=== PATIENT | female | born 1955 | race Two or more races ===

== ENCOUNTER 2018-04-01 18:41 | Inpatient (IN) | payer MEDICAID, OTHER ==
[~2018-04-01] VITALS: Ht 167.6 cm; Wt 102.8 kg
[2018-04-01] MEDS ORDERED: ACETAMINOPHEN 500 MG TAB PO ONE (19:00)
[2018-04-01 19:34] LABS: Basophils # (auto) 0 uL; Basophils % (auto) 0.4 % (0.0-2.0); Eosinophils # (auto) 0 uL; Eosinophils % (auto) 1.1 % (0.0-7.0); Hematocrit 48.4 % (36.0-46.0); Hemoglobin 16.5 g/dL (12.2-16.2); Lymphocytes # (auto) 1.1 uL; Lymphocytes % (auto) 27.6 % (10.0-50.0); Mean Corpuscular Hemoglobin 33.5 pg (28.0-32.0); Mean Corpuscular Hgb Conc. 34.1 g/dL (32.0-36.0); Mean Corpuscular Volume 98.1 fL (80.0-100.0); Monocytes # (auto) 0.3 uL; Monocytes % (auto) 6.2 % (0.0-12.0); Neutrophils # (auto) 2.7 uL; Neutrophils % (auto) 64.7 % (37.0-80.0); Nucleated Red Blood Cells % 0.4 %; Platelet Count (auto) 167 10^3/uL (140-450); Red Blood Cells 4.94 10^6/uL (4.0-5.20); Red Cell Distribution Width 12.1 % (11.8-14.3); White Blood Cell 4.1 10^3/uL (4.4-10.8)
[2018-04-01 19:53] LABS: Albumin 3.4 g/dL (3.4-5.0); Anion Gap 8 (5-15); BUN/Creatinine Ratio 8.1; Blood Urea Nitrogen 6 mg/dL (7-18); Carbon Dioxide 25 mmol/L (21-32); Chloride 103 mmol/L (98-107); GFR African American 102 mL/min; GFR Non-African American 84 mL/min; Glucose 119 mg/dL (74-106); Potassium 3.9 mmol/L (3.5-5.1); Sodium 136 mmol/L (136-145)
[2018-04-01 19:55] LABS: Alanine Aminotransferase 28 U/L (13-56); Alkaline Phosphatase 106 U/L (45-117); Aspartate Aminotransferase 31 U/L (15-37); Bilirubin, Total 0.3 mg/dL (0.2-1.0); Total Protein 8.2 g/dL (6.4-8.2)
[2018-04-01] MEDS ORDERED: IPRATROPIUM BROM 0.5 MG/2.5ML INH SOL NEB ONE (21:00)
[2018-04-01] MEDS ORDERED: methylPREDNISolone SOD SUCC 125 MG/2 ML VL IV ONE (21:00)
[2018-04-01] MEDS ORDERED: ALBUTEROL SULF 2.5 MG/0.5ML(0.5%) NEB SOLN NEB ONE (21:00)
[2018-04-01] MEDS ORDERED: LEVOFLOXACIN 750MG 150 ML IV ONE (21:00)
[2018-04-01 21:05] LABS: Urine Bacteria NONE SEEN /hpf (None Seen); Urine Blood Negative /uL (Negative); Urine Mucus FEW (None Seen); Urine Specific Gravity 1.013 (1.001-1.035); Urine WBC 1 /hpf (0 - 5)
[2018-04-01] MEDS ORDERED: ONDANSETRON HCL 4 MG/2 ML VIAL IV PRN (21:45)
[2018-04-01] MEDS ORDERED: ALBUTEROL SULF 2.5 MG/0.5ML(0.5%) NEB SOLN NEB PRN (21:45)
[2018-04-01] MEDS ORDERED: DOCUSATE SOD 100 MG CAP PO PRN (21:45)
[2018-04-01] MEDS ORDERED: LEVOFLOXACIN 750MG 150 ML IV SCH (21:53)
[2018-04-01 22:06] VITALS: BP 165/87
[2018-04-01] MEDS: FAMOTIDINE 20 MG TAB PO SCH (22:13)
[2018-04-01 23:00] VITALS: BP 147/73
[2018-04-02] MEDS: HYDROcodone-ACET 5/325MG TAB PO PRN ×2 (02:08→10:17)
[2018-04-02] MEDS: cloNIDine HCL 0.1 MG TAB PO PRN (04:33)
[2018-04-02] MEDS: TEMAZEPAM 15 MG CAP PO PRN (04:33)
[2018-04-02 04:51] VITALS: BP 167/92
[2018-04-02 06:25] LABS: BUN/Creatinine Ratio 13.6; Calcium 8.5 mg/dL (8.5-10.1); Potassium 4.2 mmol/L (3.5-5.1)
[2018-04-02 06:33] LABS: Basophils # (auto) 0 uL; Basophils % (auto) 0.2 % (0.0-2.0); Eosinophils # (auto) 0 uL; Hematocrit 46.9 % (36.0-46.0); Hemoglobin 16.4 g/dL (12.2-16.2); Lymphocytes # (auto) 0.6 uL; Lymphocytes % (auto) 20.5 % (10.0-50.0); Mean Corpuscular Hemoglobin 33.9 pg (28.0-32.0); Mean Corpuscular Hgb Conc. 34.9 g/dL (32.0-36.0); Mean Corpuscular Volume 97.1 fL (80.0-100.0); Monocytes # (auto) 0.1 uL; Monocytes % (auto) 2.8 % (0.0-12.0); Neutrophils # (auto) 2.1 uL; Neutrophils % (auto) 76.5 % (37.0-80.0); Nucleated Red Blood Cells % 0.5 %; Platelet Count (auto) 168 10^3/uL (140-450); Red Blood Cells 4.83 10^6/uL (4.0-5.20); Red Cell Distribution Width 12.2 % (11.8-14.3); White Blood Cell 2.8 10^3/uL (4.4-10.8)
[2018-04-02 09:36] VITALS: BP 129/73
[2018-04-02] MEDS: FAMOTIDINE 20 MG TAB PO SCH ×2 (10:17→19:49)
[2018-04-02] MEDS: LISINOPRIL 10 MG TAB PO SCH (10:18)
[2018-04-02] MEDS ORDERED: OSELTAMIVIR 75 MG CAP PO ONE (13:00)
[2018-04-02 13:36] VITALS: BP 160/80
--- NOTE | 2018-04-02 14:35 | NUR ---
Respiratory note: ASSESSED PATIENT FOR PRN BREATHING TX, PATIENT IS AWAKE AND ALERT. PATIENT FELT THAT SHE WOULD BENEFIT FROM A BREATHING TX. PATIENT BREATH SOUNDS WERE CLEAR AND DIMINISHED, RR 18, SPO2 87-88% ON ROOM AIR, HR 60. WILL NOTIFY RUPALI GOODWIN AND WILL CONTINUE TO MONITOR PATIENT.
--- NOTE | 2018-04-02 14:45 | NUR ---
Respiratory note: PLACED PATIENT ON 2 L NASAL CANNULA DUE TO DESATURATION. PATIENT IS ABLE TO MAINTAIN SPO2 94%. RUPALI GOODWIN WAS NOTIFIED.
[2018-04-02] MEDS: LEVOFLOXACIN 750MG 150 ML IV SCH (16:09)
[2018-04-02] MEDS: SODIUM CHLORIDE 0.9% 1,000 ML IV SCH (16:10)
[2018-04-02 17:16] VITALS: BP 148/79
[2018-04-02] MEDS: ALBUTEROL SULF 2.5 MG/0.5ML(0.5%) NEB SOLN NEB SCH ×2 (19:34→20:03)
[2018-04-02] MEDS: IPRATROPIUM BROM 0.5 MG/2.5ML INH SOL NEB SCH ×2 (19:34→20:03)
[2018-04-02] MEDS: guaiFENesin-DM 100/10mg/5ml SYR PO PRN (19:49)
--- NOTE | 2018-04-02 21:00 | NUR ---
IV insertion IV access obtained, via clean sterile technique by inserting gauge #22 catheter at left hand after 2nd attempt . IV secured properly. No trauma to site. Patient tolerated well. IV removal IV DC'd to left AC with clean sterile technique, catheter fully intact. Pressure dressing applied to site. Patient tolerated well.
[2018-04-02] MEDS ORDERED: OSELTAMIVIR 75 MG CAP PO SCH (22:00)
[2018-04-02 22:22] VITALS: BP_SYST 117; BP_DIAS 69; BP_DIAS 89
[2018-04-03] MEDS: guaiFENesin-DM 100/10mg/5ml SYR PO PRN ×4 (04:54→20:40)
[2018-04-03] MEDS: SODIUM CHLORIDE 0.9% 1,000 ML IV SCH (04:56)
[2018-04-03] MEDS: ACETAMINOPHEN 325 MG TAB PO PRN (04:56)
[2018-04-03 05:32] LABS: Basophils # (auto) 0 uL; Basophils % (auto) 0.3 % (0.0-2.0); Eosinophils # (auto) 0 uL; Eosinophils % (auto) 0.4 % (0.0-7.0); Hematocrit 43.6 % (36.0-46.0); Hemoglobin 15.2 g/dL (12.2-16.2); Lymphocytes # (auto) 1.8 uL; Lymphocytes % (auto) 40.7 % (10.0-50.0); Mean Corpuscular Hemoglobin 33.8 pg (28.0-32.0); Mean Corpuscular Hgb Conc. 34.8 g/dL (32.0-36.0); Monocytes # (auto) 0.3 uL; Monocytes % (auto) 7.8 % (0.0-12.0); Neutrophils # (auto) 2.3 uL; Neutrophils % (auto) 50.8 % (37.0-80.0); Nucleated Red Blood Cells % 0.2 %; Platelet Count (auto) 169 10^3/uL (140-450); Red Blood Cells 4.49 10^6/uL (4.0-5.20); White Blood Cell 4.5 10^3/uL (4.4-10.8)
[2018-04-03 05:52] LABS: Potassium 4.2 mmol/L (3.5-5.1)
[2018-04-03 05:55] LABS: BUN/Creatinine Ratio 30.4; Calcium 8.2 mg/dL (8.5-10.1)
[2018-04-03] MEDS: ALBUTEROL SULF 2.5 MG/0.5ML(0.5%) NEB SOLN NEB SCH ×3 (06:33→18:29)
[2018-04-03] MEDS: IPRATROPIUM BROM 0.5 MG/2.5ML INH SOL NEB SCH ×3 (06:33→18:29)
[2018-04-03] MEDS: LEVOFLOXACIN 750MG 150 ML IV SCH (09:42)
[2018-04-03] MEDS: HYDROcodone-ACET 5/325MG TAB PO PRN (09:43)
[2018-04-03] MEDS: FAMOTIDINE 20 MG TAB PO SCH ×2 (09:43→20:41)
[2018-04-03] MEDS: LISINOPRIL 10 MG TAB PO SCH (09:43)
[2018-04-03 09:56] VITALS: BP_SYST 124; BP_SYST 147; BP_DIAS 70; BP_DIAS 74
[2018-04-03 12:00] VITALS: BP_SYST 123; BP_SYST 143; BP_DIAS 77; BP_DIAS 91
[2018-04-03 16:55] VITALS: BP 128/71
--- NOTE | 2018-04-03 19:38 | NUR ---
Opening Shift Note Assumed care of patient, awake and alert. No S/S of distress/SOB or pain. Instructed on POC and to call for assist PRN, will continue to monitor for changes Q1hr and PRN. Patient feeling better today. Call roberts with in reach, bed in low position.
--- NOTE | 2018-04-03 20:47 | NUR ---
Patient c/o yeast infection, patient said " I get it every time I take antibiotics". Paged Hospitalist.
[2018-04-03 22:00] VITALS: BP 133/72
[2018-04-04] MEDS: guaiFENesin-DM 100/10mg/5ml SYR PO PRN ×3 (00:51→21:01)
[2018-04-04] MEDS: TEMAZEPAM 15 MG CAP PO PRN ×2 (00:53→21:01)
--- NOTE | 2018-04-04 01:48 | NUR ---
Patient requesting breathing treatment, RT paged.
[2018-04-04] MEDS: ALBUTEROL SULF 2.5 MG/0.5ML(0.5%) NEB SOLN NEB SCH ×6 (02:11→23:59)
[2018-04-04] MEDS: IPRATROPIUM BROM 0.5 MG/2.5ML INH SOL NEB SCH ×6 (02:11→23:59)
[2018-04-04 05:39] VITALS: BP 135/77
--- NOTE | 2018-04-04 07:40 | NUR ---
OPENING NOTE ASSUMED CARE OF PATIENT. PT IS LAYING ON BED, AWAKE, HOB LOW-FOWLERS. A&O x4. ON 2 LPM/NC, O2 SATURATION 96%. NO SIGNS OF SOB/DISTRESS NOTED. SAFETY PRECAUTIONS IN PLACE INCLUDING, BED SET TO LOWEST POSITION/LOCKED. BEDSIDE RAILS UP X2. CALL LIGHT WITHIN REACH. INSTRUCTED PT TO CALL FOR ASSISTANCE. DISCUSSED POC WITH PT. PT VERBALIZED UNDERSTANDING. WILL CONTINUE TO MONITOR Q 1HR AND PRN.
[2018-04-04 09:00] VITALS: BP 129/74
[2018-04-04] MEDS: FAMOTIDINE 20 MG TAB PO SCH ×2 (10:38→21:01)
[2018-04-04] MEDS: ACETAMINOPHEN 325 MG TAB PO PRN ×2 (10:39→22:10)
[2018-04-04] MEDS: LEVOFLOXACIN 750MG 150 ML IV SCH (10:39)
[2018-04-04] MEDS: LISINOPRIL 10 MG TAB PO SCH (10:40)
[2018-04-04] MEDS ORDERED: methylPREDNISolone SOD SUCC 125 MG/2 ML VL IV ONE (12:30)
[2018-04-04] MEDS: cloNIDine HCL 0.1 MG TAB PO PRN (12:43)
[2018-04-04 13:29] VITALS: BP 161/87
[2018-04-04 17:30] VITALS: BP 162/85
--- NOTE | 2018-04-04 19:47 | NUR ---
ENDORSED CARE TO RUPALI CARTAGENA.
[2018-04-04 21:30] VITALS: BP 144/79
[2018-04-05 02:48] VITALS: BP 162/85
[2018-04-05 05:00] VITALS: BP 140/85
[2018-04-05] MEDS: ACETAMINOPHEN 325 MG TAB PO PRN (06:19)
--- NOTE | 2018-04-05 07:15 | NUR ---
OPENING NOTE ASSUMED CARE OF PATIENT. PT IS SITTING ON BED, AWAKE, HOB HIGH-FOWLERS. A&O x4. ON 2 LPM/NC, O2 SATURATION 93%. NO SIGNS OF SOB/DISTRESS NOTED. SAFETY PRECAUTIONS IN PLACE INCLUDING, BED SET TO LOWEST POSITION/LOCKED. BEDSIDE RAILS UP X2. CALL LIGHT WITHIN REACH. INSTRUCTED PT TO CALL FOR ASSISTANCE. DISCUSSED POC WITH PT. PT VERBALIZED UNDERSTANDING. WILL CONTINUE TO MONITOR Q 1HR AND PRN.
[2018-04-05] MEDS: IPRATROPIUM BROM 0.5 MG/2.5ML INH SOL NEB SCH ×2 (07:22→11:57)
[2018-04-05] MEDS: ALBUTEROL SULF 2.5 MG/0.5ML(0.5%) NEB SOLN NEB SCH ×2 (07:22→11:57)
[2018-04-05 09:00] VITALS: BP 154/98
[2018-04-05] MEDS ORDERED: predniSONE 20 MG TAB PO SCH (10:00)
[2018-04-05] MEDS: LEVOFLOXACIN 750MG 150 ML IV SCH (11:26)
[2018-04-05] MEDS: LISINOPRIL 10 MG TAB PO SCH (11:27)
[2018-04-05] MEDS: FAMOTIDINE 20 MG TAB PO SCH (11:27)
[2018-04-05 12:56] VITALS: BP 142/80
[2018-04-05 14:04] VITALS: BP 154/98
--- NOTE | 2018-04-05 15:40 | NUR ---
Discharge instructions given as ordered. Encourage to follow up with Dr. Toro, [address] [place]. . All questions and concerns addressed. Patient verbalized understanding. No home medications held in Pharmacy and no vaccines given. IV removed with catheter intact, pressure dressing applied.
--- NOTE | 2018-04-05 15:46 | NUR ---
Patient ambulated to vehicle via wheelchair with all personal belongings, accompanied by staff member. No distress noted at time of departure.
== END 2018-04-05 15:46 | disposition home or self-care (01) | DRG 720 ==
LOC: ER 18:41 → WEST WING 22:15
PROVIDERS: ADMIT Nurse Practitioner; ATTEND Internal Medicine
DX: A41.9 Sepsis, unspecified organism (principal); J96.00 Acute respiratory failure, unspecified whether with hypoxia or hypercapnia; J18.9 Pneumonia, unspecified organism; E66.9 Obesity, unspecified; I10 Essential (primary) hypertension; E66.01 Morbid (severe) obesity due to excess calories; Z68.36 Body mass index [BMI] 36.0-36.9, adult
CPT/HCPCS: 36415; 71045; 71046; 80048; 80053; 81001; 83605; 84484; 85025; 87040; 87086; 87804; 93005; 94640; 96365; 96375; A6257; G0378; J1956; J2405

== ENCOUNTER 2018-04-19 19:21 | Emergency (ER) | payer MEDICAID ==
[~2018-04-19] VITALS: Ht 167.6 cm; Wt 99.8 kg
[2018-04-19] MEDS ORDERED: methylPREDNISolone SOD SUCC 125 MG/2 ML VL IV ONE (21:00)
[2018-04-19] MEDS ORDERED: ALBUTEROL SULF 2.5 MG/0.5ML(0.5%) NEB SOLN NEB ONE (21:00)
[2018-04-19] MEDS ORDERED: KETOROLAC TROMETH 30 MG/ML 1ML VIAL IV ONE (21:00)
[2018-04-19] MEDS ORDERED: IPRATROPIUM BROM 0.5 MG/2.5ML INH SOL NEB ONE (21:00)
[2018-04-19 21:17] VITALS: BP 153/90
[2018-04-19 21:41] LABS: Basophils # (auto) 0 uL; Basophils % (auto) 0.4 % (0.0-2.0); Eosinophils # (auto) 0.2 uL; Eosinophils % (auto) 2.3 % (0.0-7.0); Hematocrit 45.9 % (36.0-46.0); Hemoglobin 15.9 g/dL (12.2-16.2); Lymphocytes % (auto) 26.6 % (10.0-50.0); Mean Corpuscular Hemoglobin 33.7 pg (28.0-32.0); Mean Corpuscular Hgb Conc. 34.6 g/dL (32.0-36.0); Mean Corpuscular Volume 97.4 fL (80.0-100.0); Monocytes # (auto) 0.5 uL; Neutrophils # (auto) 4.8 uL; Neutrophils % (auto) 63.7 % (37.0-80.0); Nucleated Red Blood Cells % 0.1 %; Platelet Count (auto) 226 10^3/uL (140-450); Red Blood Cells 4.72 10^6/uL (4.0-5.20); White Blood Cell 7.6 10^3/uL (4.4-10.8)
[2018-04-19 22:07] LABS: Alanine Aminotransferase 30 U/L (13-56); Albumin 3.6 g/dL (3.4-5.0); Anion Gap 6 (5-15); Aspartate Aminotransferase 12 U/L (15-37); BUN/Creatinine Ratio 14.1; Blood Urea Nitrogen 9 mg/dL (7-18); Carbon Dioxide 25 mmol/L (21-32); Chloride 106 mmol/L (98-107); GFR African American 120 mL/min; GFR Non-African American 99 mL/min; Glucose 279 mg/dL (74-106); Potassium 3.8 mmol/L (3.5-5.1); Sodium 137 mmol/L (136-145)
[2018-04-19 22:13] LABS: INR 0.9 (0.9-1.15); Prothrombin Time 9.7 sec (9.27-12.13)
[2018-04-19 22:14] LABS: Alkaline Phosphatase 110 U/L (45-117); Bilirubin, Total 0.4 mg/dL (0.2-1.0); Total Protein 7.9 g/dL (6.4-8.2)
[2018-04-19 22:19] LABS: CRP High Sensitivity 3.73 mg/dL (< 0.3)
[2018-04-19] MEDS ORDERED: SODIUM CHLORIDE 0.9% 1,000 ML IV ONE (23:15)
[2018-04-20] MEDS ORDERED: ALBUTEROL SULF 2.5 MG/0.5ML(0.5%) NEB SOLN NEB ONE
[2018-04-20] MEDS ORDERED: IPRATROPIUM BROM 0.5 MG/2.5ML INH SOL NEB ONE
== END 2018-04-20 01:55 | disposition home or self-care (01) ==
LOC: ER 19:21
DX: J98.11 Atelectasis (principal); E11.9 Type 2 diabetes mellitus without complications; I10 Essential (primary) hypertension
CPT/HCPCS: 36415; 71046; 80053; 82550; 82962; 83036; 83605; 83880; 84484; 85025; 85379; 85610; 85652; 86141; 94640; 96374; 96375; 99284; J1885; J2930; J7030; J7611; J7644

== ENCOUNTER 2019-11-01 15:23 | Emergency (ER) | payer MEDICAID, OTHER ==
[~2019-11-01] VITALS: Ht 172.7 cm; Wt 99.8 kg
[2019-11-01] MEDS ORDERED: ACETAMINOPHEN 325 MG TAB PO ONE (16:45)
[2019-11-01 17:20] LABS: Basophils # (auto) 0 10 ^3/uL (0-0.2); Basophils % (auto) 0.2 % (0.0-2.0); Eosinophils # (auto) 0 10 ^3/uL (0-0.8); Eosinophils % (auto) 0.2 % (0.0-7.0); Hematocrit 43.3 % (36.0-46.0); Hemoglobin 15.2 g/dL (12.2-16.2); Lymphocytes # (auto) 0.4 10 ^3/uL (0.4-5.4); Lymphocytes % (auto) 5.7 % (10.0-50.0); Mean Corpuscular Hemoglobin 33.8 pg (28.0-32.0); Mean Corpuscular Volume 96.5 fL (80.0-100.0); Monocytes # (auto) 0.1 10 ^3/uL (0-1.3); Monocytes % (auto) 1.2 % (0.0-12.0); Neutrophils # (auto) 6.8 10 ^3/uL (1.6-8.6); Neutrophils % (auto) 92.7 % (37.0-80.0); Platelet Count (auto) 149 10^3/uL (140-450); Red Blood Cells 4.48 10^6/uL (4.0-5.20); Red Cell Distribution Width 12.6 % (11.8-14.3); White Blood Cell 7.3 10^3/uL (4.4-10.8)
[2019-11-01 17:34] LABS: Alanine Aminotransferase 45 U/L (13-56); Albumin 3.1 g/dL (3.4-5.0); Anion Gap 9 (5-15); Aspartate Aminotransferase 30 U/L (15-37); BUN/Creatinine Ratio 15.7; Blood Urea Nitrogen 11 mg/dL (7-18); Carbon Dioxide 20 mmol/L (21-32); Chloride 111 mmol/L (98-107); GFR African American 108 mL/min; GFR Non-African American 89 mL/min; Glucose 99 mg/dL (74-106); INR 1.18 (0.9-1.15); Magnesium 1.6 mg/dL (1.6-2.6); Partial Thromboplastin Time 23.9 sec (23.0-31.2); Potassium 3.1 mmol/L (3.5-5.1); Sodium 140 mmol/L (136-145)
[2019-11-01 17:39] LABS: Alkaline Phosphatase 101 U/L (45-117); Bilirubin, Total 1.9 mg/dL (0.2-1.0); Lactic Acid w/Reflex 2.3 mmol/L (0.4-2.0); Total Protein 6.6 g/dL (6.4-8.2)
[2019-11-01] MEDS ORDERED: SODIUM CHLORIDE 0.9% 1,000 ML IVB ONE (18:08)
[2019-11-01] MEDS ORDERED: DOXYCYCLINE 100MG/250ML 250 ML IV ONE (20:15)
[2019-11-01] MEDS ORDERED: ASCORBIC ACID 500 MG TAB PO ONE (20:15)
[2019-11-01] MEDS ORDERED: ZINC SULFATE 220mg CAP or TAB PO ONE (20:15)
[2019-11-01 20:25] LABS: Magnesium 1.7 mg/dL (1.6-2.6)
[2019-11-01] MEDS ORDERED: POTASSIUM CHL 20 Meq TABLET PO ONE (20:30)
[2019-11-01] MEDS ORDERED: HYDROcodone-ACET 5/325MG TAB PO ONE (20:45)
[2019-11-01 21:31] LABS: Urine Bacteria NONE SEEN /hpf (None Seen); Urine Blood Negative /uL (Negative); Urine Specific Gravity 1.016 (1.001-1.035); Urine WBC 1 /hpf (0 - 5)
[2019-11-02] MEDS ORDERED: POTASSIUM EFFERVESENT TAB 25 MEQ PO ONE (00:30)
[2019-11-02 00:57] VITALS: BP 120/62
== END 2019-11-02 00:38 | disposition home or self-care (01) ==
LOC: EDBD 15:23 → ER 15:23
DX: J18.9 Pneumonia, unspecified organism (principal); E87.6 Hypokalemia; E11.9 Type 2 diabetes mellitus without complications; I10 Essential (primary) hypertension; Z20.828 Contact with and (suspected) exposure to other viral communicable diseases
CPT/HCPCS: 36415; 71045; 80053; 81001; 83605; 83735; 84484; 85025; 85610; 85730; 87040; 87077; 87186; 87426; 93005; 96361; 96365; 99285; C9803; J3490; U0003

== ENCOUNTER 2023-10-10 03:41 | Inpatient (IN) | payer OTHER ==
[2023-10-10] VITALS (9 sets, daily range): BP systolic 108–116; BP diastolic 60–62; PULSE 78–109; RESP 16–22; TEMP 97.5–98.2; O2SAT 95–100
[~2023-10-10] VITALS: Ht 167.6 cm; Wt 92.0 kg
[2023-10-10] MEDS: cefTRIAXone 1GM/50ML D5W 50 ML IV ONE (04:21)
[2023-10-10] MEDS: HYDROcodone-ACET 5/325MG TAB PO ONE (04:21)
[2023-10-10] MEDS: FAMOTIDINE (10MG/ML) 2ML VL IV ONE (04:22)
[2023-10-10] MEDS: ONDANSETRON HCL 4 MG/2 ML VIAL IV ONE (04:22)
[2023-10-10] MEDS: SODIUM CHLORIDE 0.9% 1,000 ML IV ONE ×3 (04:23→08:15)
[2023-10-10 04:35] LABS: Basophils # (auto) 0 10 ^3/uL (0-0.2); Basophils % (auto) 0.2 % (0.0-2.0); Eosinophils # (auto) 0 10 ^3/uL (0-0.8); Eosinophils % (auto) 0.9 % (0.0-7.0); Hematocrit 43.1 % (36.0-46.0); Hemoglobin 14.8 g/dL (12.2-16.2); Lymphocytes # (auto) 0.3 10 ^3/uL (0.4-5.4); Mean Corpuscular Hgb Conc. 34.4 g/dL (32.0-36.0); Mean Corpuscular Volume 98.6 fL (80.0-100.0); Monocytes # (auto) 0 10 ^3/uL (0-1.3); Monocytes % (auto) 1.3 % (0.0-12.0); Neutrophils # (auto) 1.8 10 ^3/uL (1.6-8.6); Neutrophils % (auto) 85.6 % (37.0-80.0); Nucleated Red Blood Cells % 0.2 %; Platelet Count (auto) 165 10^3/uL (140-450); Red Blood Cells 4.37 10^6/uL (4.0-5.20); Red Cell Distribution Width 13.2 % (11.8-14.3); White Blood Cell 2.1 10^3/uL (4.4-10.8)
[2023-10-10 04:49] LABS: Alanine Aminotransferase 52 U/L (7-40); Albumin 3.9 g/dL (3.2-4.8); Alkaline Phosphatase 262 U/L (46-116); Anion Gap 12 (5-15); Aspartate Aminotransferase 37 U/L (13-40); Bilirubin, Total 0.9 mg/dL (0.2-1.0); Blood Urea Nitrogen 20 mg/dL (9-23); Calcium 9.8 mg/dL (8.7-10.4); Carbon Dioxide 19 mmol/L (20-30); Chloride 107 mmol/L (98-107); Glucose 253 mg/dL (74-106); Lipase 29 U/L (12-53); Potassium 3.3 mmol/L (3.5-5.1); Sodium 138 mmol/L (136-145); Total Protein 6.9 g/dL (5.7-8.2)
[2023-10-10 04:51] LABS: Lactic Acid w/Reflex 4.4 mmol/L (0.4-2.0)
[2023-10-10] MEDS: AZITHROMYCIN 500MG/ 250ML 250 ML IV ONE (05:07)
[2023-10-10 07:39] LABS: COVID19 ANTIGEN SOFIA FIA NEGATIVE (NEGATIVE); Rapid Influenza A Negative (Negative); Rapid Influenza B Negative (Negative)
[2023-10-10] MEDS: IPRATROPIUM BROM 0.5 MG/2.5ML INH SOL NEB ONE (07:42)
[2023-10-10] MEDS: ALBUTEROL SULF 2.5 MG/0.5ML(0.5%) NEB SOLN NEB ONE (07:42)
[2023-10-10] MEDS ORDERED: MORPHINE SULFATE INJ 2 MG/ml SYRG IV PRN (08:15)
[2023-10-10] MEDS ORDERED: NITROGLYCERIN 0.4 MG SL TAB SL PRN (08:15)
[2023-10-10] MEDS ORDERED: ONDANSETRON HCL 4 MG/2 ML VIAL IV PRN (08:15)
[2023-10-10] MEDS ORDERED: VANCOMYCIN PER PHARMACY 0 MG IV SCH (08:15)
[2023-10-10] MEDS ORDERED: DEXTROSE (50%) 50ML SYRG IV PRN (08:30)
[2023-10-10 08:44] LABS: INR 1.16 (0.9-1.15); Prothrombin Time 12.2 sec (9.3-11.8)
[2023-10-10] MEDS: SODIUM CHLORIDE 0.9% 1,000 ML IV SCH (09:01)
[2023-10-10] MEDS: PIPERACILLIN-TAZOB 3.375GM 100 ML IV SCH ×2 (09:01→15:32)
[2023-10-10 09:08] LABS: Base Excess -6.5 mmol/L (-2.0-3.0)
[2023-10-10] MEDS: VANCOMYCIN 1GM/200ML 200 ML IV ONE ×2 (10:11)
[2023-10-10] MEDS: POTASSIUM CHL 20 Meq TABLET PO ONE (10:13)
[2023-10-10] MEDS: ACCU-CHEK COMFORT CURVE STRIP VI SCH (11:46)
[2023-10-10] MEDS: InsuLIN REG 1unit/0.01ml Soln (100units/ml) SC SCH ×2 (11:50→22:24)
[2023-10-10] MEDS: AZITHROMYCIN 500MG/ 250ML 250 ML IV SCH (12:24)
[2023-10-10] MEDS: ALBUTEROL SULF 2.5 MG/0.5ML(0.5%) NEB SOLN NEB PRN (12:31)
[2023-10-10] MEDS ORDERED: LEVO500T91 PO (15:22)
[2023-10-10] MEDS ORDERED: ALBUAER3 IN (15:22)
[2023-10-10] MEDS ORDERED: METH4PAK PO (15:22)
[2023-10-10 19:15] LABS: Basophils # (auto) 0 10 ^3/uL (0-0.2); Basophils % (auto) 0.3 % (0.0-2.0); Eosinophils # (auto) 0 10 ^3/uL (0-0.8); Eosinophils % (auto) 0.3 % (0.0-7.0); Hematocrit 37.4 % (36.0-46.0); Hemoglobin 12.8 g/dL (12.2-16.2); Lymphocytes % (auto) 12.2 % (10.0-50.0); Mean Corpuscular Hemoglobin 33.6 pg (28.0-32.0); Mean Corpuscular Hgb Conc. 34.1 g/dL (32.0-36.0); Mean Corpuscular Volume 98.6 fL (80.0-100.0); Monocytes # (auto) 0.4 10 ^3/uL (0-1.3); Monocytes % (auto) 4.4 % (0.0-12.0); Neutrophils # (auto) 7.1 10 ^3/uL (1.6-8.6); Neutrophils % (auto) 82.8 % (37.0-80.0); Nucleated Red Blood Cells % 0.1 %; Platelet Count (auto) 150 10^3/uL (140-450); Red Cell Distribution Width 13.1 % (11.8-14.3); White Blood Cell 8.6 10^3/uL (4.4-10.8)
[2023-10-10 19:16] LABS: Urine Bacteria None Seen /hpf (None Seen)
[2023-10-10 19:19] LABS: Chloride 105 mmol/L (98-107); Potassium 4.4 mmol/L (3.5-5.1)
[2023-10-10 19:20] LABS: Anion Gap 8 (5-15); Calcium 8.7 mg/dL (8.7-10.4); Carbon Dioxide 20 mmol/L (20-30)
[2023-10-10 19:25] LABS: BUN/Creatinine Ratio 19.5 (10.0-20.0); Blood Urea Nitrogen 22 mg/dL (9-23); Glucose 348 mg/dL (74-106)
[2023-10-10 19:29] LABS: Sodium 133 mmol/L (136-145)
[2023-10-10 19:35] LABS: Urine Blood TRACE /uL (Negative); Urine Clarity Clear (Clear); Urine Color Yellow (Yellow); Urine Protein, UAD 1+ (Negative); Urine Specific Gravity 1.038 (1.001-1.035); Urine Urobilinogen Normal (Negative); Urine WBC <1 /hpf (0 - 5); Urine pH 5.5 (5.0-9.0)
[2023-10-10 19:37] LABS: Lactic Acid w/Reflex 2.7 mmol/L (0.4-2.0)
[2023-10-10] MEDS: SODIUM CHLORIDE 0.9% 500 ML IV ONE (20:33)
[2023-10-10] MEDS ORDERED: ALBU108A5 INH (21:43)
[2023-10-10] MEDS ORDERED: TRAZ-227 PO (21:43)
[2023-10-10] MEDS ORDERED: METF-372 PO (21:43)
[2023-10-10] MEDS: VANCOMYCIN 1GM/200ML 200 ML IV SCH (22:11)
[2023-10-11] VITALS (8 sets, daily range): BP systolic 94–156; BP diastolic 54–92; PULSE 85–104; RESP 17–19; TEMP 97.8–98.7; O2SAT 94–99
[2023-10-11] MEDS: traZODone HCL 50 MG TAB PO ONE (00:31)
[2023-10-11 06:11] LABS: Basophils # (auto) 0 10 ^3/uL (0-0.2); Basophils % (auto) 0.2 % (0.0-2.0); Eosinophils # (auto) 0.1 10 ^3/uL (0-0.8); Eosinophils % (auto) 0.7 % (0.0-7.0); Hematocrit 34.5 % (36.0-46.0); Hemoglobin 12.2 g/dL (12.2-16.2); Lymphocytes % (auto) 11.4 % (10.0-50.0); Mean Corpuscular Hemoglobin 34.3 pg (28.0-32.0); Mean Corpuscular Hgb Conc. 35.3 g/dL (32.0-36.0); Mean Corpuscular Volume 97.3 fL (80.0-100.0); Monocytes # (auto) 0.8 10 ^3/uL (0-1.3); Monocytes % (auto) 9.1 % (0.0-12.0); Neutrophils # (auto) 7.1 10 ^3/uL (1.6-8.6); Neutrophils % (auto) 78.6 % (37.0-80.0); Nucleated Red Blood Cells % 0.1 %; Platelet Count (auto) 148 10^3/uL (140-450); Red Blood Cells 3.55 10^6/uL (4.0-5.20); Red Cell Distribution Width 13.1 % (11.8-14.3)
[2023-10-11 06:19] LABS: Anion Gap 6 (5-15); Carbon Dioxide 20 mmol/L (20-30); Chloride 107 mmol/L (98-107); Potassium 3.9 mmol/L (3.5-5.1); Sodium 133 mmol/L (136-145)
[2023-10-11 06:20] LABS: Calcium 8.6 mg/dL (8.7-10.4)
[2023-10-11 06:25] LABS: BUN/Creatinine Ratio 29.8 (10.0-20.0); Blood Urea Nitrogen 25 mg/dL (9-23); Glucose 209 mg/dL (74-106)
[2023-10-11] MEDS: SODIUM CHLORIDE 0.9% 1,000 ML IV ONE (06:49)
[2023-10-11] MEDS: ACETAMINOPHEN 325 MG TAB PO PRN (12:33)
[2023-10-11] MEDS ORDERED: PIPERACILLIN-TAZOB 3.375GM 100 ML IV SCH (17:00)
== END 2023-10-11 18:00 | disposition home or self-care (01) | DRG 177 ==
LOC: ER 03:41 → EDBD 03:41 → TELE 08:20 → TELE-WESTW 21:15
PROVIDERS: ADMIT Internal Medicine; ATTEND Internal Medicine
DX: J15.69 Pneumonia due to other Gram-negative bacteria (principal); J96.01 Acute respiratory failure with hypoxia; E87.20 Acidosis, unspecified; J15.9 Unspecified bacterial pneumonia; Z20.822 Contact with and (suspected) exposure to COVID-19; I10 Essential (primary) hypertension; E11.9 Type 2 diabetes mellitus without complications; E78.5 Hyperlipidemia, unspecified; J06.9 Acute upper respiratory infection, unspecified; Z90.49 Acquired absence of other specified parts of digestive tract; Z80.3 Family history of malignant neoplasm of breast; Z81.1 Family history of alcohol abuse and dependence; Z82.61 Family history of arthritis; Z79.84 Long term (current) use of oral hypoglycemic drugs
CPT/HCPCS: 36415; 36600; 71045; 71250; 74176; 80048; 80053; 81001; 82805; 82962; 83605; 83690; 83880; 84484; 85025; 85610; 86803; 87040; 87086; 87340; 87426; 87804; 93005; 94640; 99291; G0378; J1815; J2405; J2543; J3490